=== PATIENT | female | born 1950 | race African-American/Black ===

== ENCOUNTER 2018-01-10 05:41 | Day surgery (SDC) | payer MEDICARE, OTHER ==
--- NOTE | 2018-01-06 15:30 | Pre-Procedure Note/Attestation ---
Pre-Procedure Note/Attestation Complete Prior to Procedure Planned Procedure: left Procedure Narrative: PHACO WITH IOL Indications for Procedure Pre-Operative Diagnosis: CATARACT Attestation I attest that I discussed the nature of the procedure; its benefits; risks and complications; and alternatives (and the risks and benefits of such alternatives ), prior to the procedure, with the patient (or the patient's legal associate financial representative). I attest that, if there was a reasonable possibility of needing a blood transfusion, the patient (or the patient's legal associate financial representative) was given the [facility] standardized written summary, pursuant to the [place] Blood Safety Act ([place] Health and Safety Code # 1645, as amended). I attest that I re-evaluated the patient just prior to the surgery and that there has been no change in the patient's H&P, except as documented below: STEW ALVES Jan 06, 2018 15:30
--- NOTE | 2018-01-06 15:32 | Opthalmology H&P ---
Ophthalmology H&P H&P Chief Complaint: decreased vision in left eye HPI Vision Affects Ability to: read, focus/use eyes together, manage personal affairs HPI Narrative BLURRY VISION Exam Visual Acuity: OD: 209/60 OS; 20/60 Tension: OD; 11 OS; 10 Eye Exam: normal OU: external exam, palpebral fissure-width, marginal reflex distance, levator function, corneas, anterior chambers, fundus exam, findings: lens - OD; NS OS; NS Assessment/Plan Diagnosis: (1) Nuclear sclerotic cataract of left eye Treatment Plan: cataract extraction w/ lens implant Goals of Treatment: improvement of vision, enhance quality of life Attestation Attestation The risks and benefits of the surgery as well as alternative procedures were explained to the patient in detail. STEW ALVES Jan 06, 2018 15:32
[~2018-01-10] VITALS: Ht 165.1 cm; Wt 81.6 kg
[2018-01-10] VITALS (8 sets, daily range): BP systolic 106–129; BP diastolic 49–75
[2018-01-10] MEDS ORDERED: Propofol 200mg/20ml IV ONE (05:42)
[2018-01-10] MEDS ORDERED: fentaNYL 100 mcg/2 mL IV ONE (05:42)
[2018-01-10] MEDS ORDERED: LR 1000ml ONE (05:42)
[2018-01-10] MEDS ORDERED: Midazolam 2mg/2ml Inj ONE (05:42)
[2018-01-10] MEDS ORDERED: NS Irrig 1000ml ONE (05:42)
[2018-01-10] MEDS ORDERED: Metoclopramide 10mg/2ml Inj ONE (05:42)
[2018-01-10] MEDS ORDERED: Sterile Water Irrig 1000ml IRRIG ONE (05:42)
[2018-01-10] MEDS ORDERED: Sodium Chloride 10ml vial INJ ONE (05:42)
[2018-01-10] MEDS: Cyclopentolate 1% Opth Sol 2ml LEFT EYE SCH ×3 (06:21→06:35)
[2018-01-10] MEDS: Tobramycin Op Soln 0.3% 5ml LEFT EYE SCH ×3 (06:21→06:35)
[2018-01-10] MEDS: Phenylephrine 10% Opth Soln 5ml LEFT EYE SCH ×3 (06:21→06:35)
[2018-01-10] MEDS: Tropicamide 1% Opth 15ml Soln LEFT EYE SCH ×3 (06:21→06:35)
[2018-01-10] MEDS ORDERED: DILTIAZEM ER240 MG PO (06:43)
[2018-01-10] MEDS ORDERED: METOPROLOL TART50 M1 ORAL (06:43)
[2018-01-10] MEDS ORDERED: LOSARTAN POTASS50 MG ORAL (06:43)
[2018-01-10] MEDS ORDERED: ELIQUIS5 MG PO (06:43)
[2018-01-10] MEDS ORDERED: DIGOXIN250 MCG ORAL (06:43)
[2018-01-10] MEDS ORDERED: ASPIR 8181 MG ORAL (06:43)
[2018-01-10] MEDS ORDERED: THEOPHYLLINE400 MG PO (06:43)
[2018-01-10] MEDS ORDERED: Akten 3.5% 1ml Btl LEFT EYE ONE (07:00)
[2018-01-10] MEDS ORDERED: Proparacaine 0.5% Opth Soln 15ml LEFT EYE ONE (07:00)
[2018-01-10] MEDS ORDERED: Tetracaine 0.5% Opth 4ml Soln LEFT EYE ONE (07:00)
[2018-01-10 07:27] LABS: ANION GAP 10 mmol/L (5-15); BLOOD UREA NITROGEN 5 mg/dL (7-18); CALCIUM 8.1 MG/DL (8.5-10.1); CARBON DIOXIDE 27 MMOL/L (21-32); CHLORIDE 100 MMOL/L (98-107); CREATININE 1.2 MG/DL (0.55-1.30); POTASSIUM 3.4 MMOL/L (3.5-5.1); SODIUM 137 MMOL/L (136-145)
[2018-01-10] MEDS ORDERED: EPINEPHrine 1mg/1ml Amp ONE (13:17)
[2018-01-10] MEDS ORDERED: Dexamethasone 4mg/ml vial ONE (13:17)
[2018-01-10] MEDS ORDERED: BSS 500ml btl ONE (13:17)
[2018-01-10] MEDS ORDERED: Pilocarpine 2% Opth 15ml Soln ONE (13:18)
[2018-01-10] MEDS ORDERED: Sodium Hyaluronate 14 mg/ml 0.85ml ONE (13:18)
[2018-01-10] MEDS ORDERED: BSS 15ml BTL ONE (13:18)
[2018-01-10] MEDS ORDERED: Povidone-Iodine 5% opth solution ONE (13:18)
--- NOTE | 2018-01-10 14:02 | Brief Operative Note ---
Immediate Post Operative Note Operative Note Chief Complaint: blurry vision Pre-op Diagnosis: CATARACT, OS Procedure: phaco with IOL, OS Post-op Diagnosis: Pseudophakia Post-op Diagnosis: same as pre-op Findings: consistent w/pre-op dx studies Surgeon: Jemma Anesthesiologist: Riley Anesthesia: MAC Specimen: none Complications: none Fluids: LR Estimated Blood Loss: none Drains: none Implant(s) used?: Yes STEW ALVES Jan 10, 2018 14:02
--- NOTE | 2018-01-10 14:04 | Operative Note - PDOC ---
Operative Note Operative Note Date of Operation/Procedure: Jan 10, 2018 Chief Complaint: blurry vision Pre-op Diagnosis: CATARACT, OS Procedure: phaco with IOL, OS Post-op Diagnosis: Pseudophakia Post-op Diagnosis: same as pre-op Operative Findings: consistent w/pre-op dx studies Surgeon: Jemma Anesthesiologist: Riley Anesthesia: MAC Specimen: none Complications: none Fluids: LR Estimated Blood Loss: none Drains: none Implant(s) used?: Yes Indications for Procedure cataract Description of Procedure This patient has been complaining visually significant cataract in the affected eye with the best corrected visual acuity under moderate glare conditions worse. The patient complains of difficulties with glare in performing activities of daily living and wants to manage personal affairs with comfort and accuracy and see well enough to move with safety at home and outdoors. The risks, benefits and alternatives of the procedure were discussed with the patient in the office prior to scheduling surgery. All questions from the patient were answered after the surgical procedure was explained in detail. The risks of the procedure as explained to the patient include, but are not limited to, pain, infection, bleeding, loss of vision, retinal detachment, need for further surgery, loss of lens nucleus, double vision, etc. Alternative procedures were discussed which include, to do nothing or seek a second opinion. Informed consent for this procedure was obtained from the patient. The patient was referred to a primary care physician for a cardiopulmonary clearance prior to surgery, after proper evaluation was done patient was properly scheduled for outpatient surgery. The patient was brought to the operating room where the anesthesiologist established I.V. lines and cardiac monitoring leads. Mild intravenous sedation was administered. The patient was then prepared with a 5% solution of povidone- iodine to the conjunctival fornix and lashes, and a 10% solution of povidone- iodine to the lids and periorbital skin. The patient was then draped in the usual sterile fashion. A lid speculum was then placed in the operative eye. A keratome blade was then used to create a biplanar incision into the anterior chamber. Viscoelastics was then instilled into the anterior chamber. A capsulorrhexis was then fashioned with an utrata forceps. then a BSS and a cannula were then used to hydrodissect and hydro delineate the lens. Paracentesis incision was made at 3 o'clock with sharp blade. The phacoemulsification unit, after being properly adjusted and tested, was then used to emulsify the nucleus followed by r esidual cortical material was aspirated with the I and A unit. Healon was then instilled into the anterior chamber. The corneal wound was then enlarged to the size of the optic with the candace keratome blade. The intraocular lens was then inspected for right power and size and thought to be satisfactory. Then the lens was gently placed in the capsular bag. Positioning within the capsular bag was confirmed by direct visualization. Optic centration was accomplished with a Sins[place] hook. Viscoelastics was removed from the anterior chamber using the irrigation and aspiration unit. The corneal wound was then tested for leaks and none were found. The lid speculum were then removed. Sponge and needle counts were correct. An eye patch and shield were placed over the operative eye. The patient was taken to the recovery room in stable condition. There were no complications. The patient tolerated the procedure well. The patient was then transferred to the ambulatory surgery unit in stable and satisfactory condition , was given detailed written instructions and asked to follow up in the office the next day. Gulshan RAMOS JAMES Jan 10, 2018 14:03
== END 2018-01-10 10:15 | disposition home or self-care (01) ==
LOC: SUR 05:41 → EDBD 14:45
DX: H25.12 Age-related nuclear cataract, left eye (principal); I11.0 Hypertensive heart disease with heart failure; E78.5 Hyperlipidemia, unspecified; J44.9 Chronic obstructive pulmonary disease, unspecified; M19.90 Unspecified osteoarthritis, unspecified site
CPT/HCPCS: 36415; 66984; 80048; J0171; J2250; J2704; J2765; J3010; J3370; J7120; V2632; 94003; 94150